=== PATIENT | female | born 1955 | race Caucasian/White ===

== ENCOUNTER 2021-04-29 10:56 | Emergency (ER) | payer OTHER ==
[~2021-04-29] VITALS: Ht 165.1 cm; Wt 63.5 kg
--- NOTE | 2021-04-29 11:18 | NUR ---
65 years old female alert oriented x4 presents to er with right arm throbbing pain, skin warm, no swelling, no redness, csm good.
[2021-04-29] MEDS ORDERED: MORPHINE SULFATE INJ 4 MG/ML DISP.SYRIN ONE (11:39)
[2021-04-29 11:40] LABS: BASOPHILS # (AUTO) 0.1 K/uL (0.0-0.2); BASOPHILS % (AUTO) 1.5 % (0.0-2.0); EOSINOPHILS % (AUTO) 2.5 % (0.0-6.0); HEMATOCRIT 39 % (33-45); HEMOGLOBIN 12.2 g/dL (11.5-14.8); LYMPHOCYTES # (AUTO) 2.3 K/uL (0.8-4.8); LYMPHOCYTES % (AUTO) 39.8 % (20.0-44.0); MEAN CORPUSCULAR HGB CONC 31 g/dl (31.0-36.0); MEAN CORPUSCULAR VOLUME 83 fL (82-100); MONOCYTES # (AUTO) 0.4 K/uL (0.1-1.30); MONOCYTES % (AUTO) 7.5 % (2.0-12.0); NEUTROPHILS # (AUTO) 2.8 K/uL (1.8-8.9); NEUTROPHILS % (AUTO) 48.7 % (43.0-81.0); PLATELET COUNT (AUTO) 279 K/uL (150-450); WHITE BLOOD COUNT (AUTO) 5.8 K/uL (4.3-11.0)
--- NOTE | 2021-04-29 11:43 | NUR ---
morphine 4mg IM given for pain per Dr Johnson.
[2021-04-29 11:46] LABS: CALCIUM, SERUM 9.2 mg/dL (8.5-10.1); CREATININE 0.7 mg/dL (0.6-1.3); POTASSIUM 4.5 mmol/L (3.5-5.1)
[2021-04-29] MEDS ORDERED: MORPHINE SULFATE INJ 10 MG/ML DISP.SYRIN IM ONE (13:30)
[2021-04-29] MEDS ORDERED: IBUPROFEN 600 MG TABLET ONE (14:27)
--- NOTE | 2021-04-29 14:29 | NUR ---
patient condition improved d/c home with instructions after care reviewed understood left er via self ambulatory with steady gait.
[2021-04-29] MEDS ORDERED: IBUPROFEN 600 MG TABLET PO ONE (14:30)
[2021-04-29] MEDS ORDERED: IBUP-1955 PO (14:38)
[2021-04-29] MEDS ORDERED: TRAM50TA2 PO (14:38)
[2021-04-29 14:47] VITALS: BP 150/90
== END 2021-04-29 14:48 | disposition home or self-care (01) ==
LOC: ER 10:56
DX: M79.601 Pain in right arm (principal); E03.9 Hypothyroidism, unspecified
CPT/HCPCS: 36415; 72040; 73060; 73090; 80048; 85025; 93931; 93971; 96372; 99285; J2270; 93930-TC